=== PATIENT | male | born 1985 | race Caucasian/White ===

== ENCOUNTER 2017-05-27 00:55 | Emergency (ER) | payer MEDICAID ==
[~2017-05-27] VITALS: Ht 167.6 cm; Wt 74.8 kg
[2017-05-27 01:03] VITALS: BP 124/81
== END 2017-05-27 06:29 | disposition left against medical advice (07) ==
LOC: ER 00:55
DX: S06.360A Traumatic hemorrhage of cerebrum, unspecified, without loss of consciousness, initial encounter (principal); Z53.29 Procedure and treatment not carried out because of patient's decision for other reasons; F12.10 Cannabis abuse, uncomplicated; F15.10 Other stimulant abuse, uncomplicated; Y08.89XA Assault by other specified means, initial encounter; Y93.89 Activity, other specified; Y99.8 Other external cause status; Y92.89 Other specified places as the place of occurrence of the external cause
CPT/HCPCS: 70450